=== PATIENT | male | born 1960 | race African-American/Black ===

== ENCOUNTER 2018-10-22 05:33 | Emergency (ER) | payer BC ==
[~2018-10-22] VITALS: Ht 193 cm; Wt 113.4 kg
[2018-10-22] MEDS ORDERED: RISPERDAL4 MG PO (05:45)
[2018-10-22 06:09] LABS: ABSOLUTE NEUTROPHILS 5.7 thou/uL (1.4-8.2); BASOPHILS 0.6 % (0.0-2.0); HEMATOCRIT 40.8 % (42.0-52.0); HEMOGLOBIN 13.6 gm/dL (14.0-18.0); LYMPHOCYTES 20.4 % (24.0-44.0); MCH 27.5 pg (26.0-34.0); MCHC 33.2 g/dL (28.0-37.0); MCV 82.8 fL (80.0-100.0); PLATELET COUNT 253 thou/uL (150-400); RBC 4.94 mil/uL (4.50-6.00); RDW 13.6 % (10.5-14.5); WBC 8.5 thou/uL (4.0-11.0)
[2018-10-22 06:17] LABS: ANION GAP 11 mmol/L (7-16); BUN 15 mg/dL (7-18); CALCIUM 8.6 mg/dL (8.5-10.1); CHLORIDE 98 mmol/L (98-107); CO2 28 mmol/L (21-32); CREATININE 0.9 mg/dL (0.7-1.3); GLUCOSE 109 mg/dL (74-106); POTASSIUM 3.1 mmol/L (3.5-5.1); SODIUM 137 mmol/L (136-145)
[2018-10-22 06:26] LABS: TROPONIN-I <0.06 ng/mL (<0.06)
[2018-10-22 07:21] VITALS: BP 132/72
== END 2018-10-22 07:23 | disposition left against medical advice (07) ==
LOC: ER 05:33
PROVIDERS: Emergency Medicine
DX: M79.604 Pain in right leg (principal); M79.605 Pain in left leg; R53.83 Other fatigue; E87.6 Hypokalemia; F20.0 Paranoid schizophrenia